=== PATIENT | male | born 1995 | race Caucasian/White ===

== ENCOUNTER 2020-06-01 13:01 | Emergency (ER) | payer OTHER ==
[~2020-06-01 13:01] MED LIST: AMOXICILLIN500 M1 PO; AMOXICILLIN500 MG PO
[2020-06-01] MEDS ORDERED: XYLOCAINE VISC100 ML EXT (14:54)
[2020-06-01] MEDS ORDERED: IBU800 MG PO (14:54)
[2020-06-01] MEDS ORDERED: PENVEE K 500 M500 MG PO (14:54)
[2020-06-01] MEDS ORDERED: ZOFRAN ODT 4 MG4 MG PO (14:59)
== END 2020-06-01 15:16 | disposition home or self-care (01) ==
LOC: ER1 13:01
DX: K04.7 Periapical abscess without sinus (principal); F17.210 Nicotine dependence, cigarettes, uncomplicated
CPT/HCPCS: 41800; 87070; 87205; 99282